=== PATIENT | female | born 1970 | race Caucasian/White ===

== ENCOUNTER 2024-12-17 07:25 | Outpatient (RCR) | payer OTHER, SELFPAY | END 2024-12-17 23:59 | disposition home or self-care (01) | LOC: RPT 07:25 | PROVIDERS: ATTENDING PHYSICIAN Physician Assistant Surgical; FAMILY PHYSICIAN Family Medicine | DX: S82.831D Other fracture of upper and lower end of right fibula, subsequent encounter for closed fracture with routine healing (principal); Z73.6 Limitation of activities due to disability; R26.2 Difficulty in walking, not elsewhere classified; M62.81 Muscle weakness (generalized); R26.89 Other abnormalities of gait and mobility; W10.1XXD Fall (on)(from) sidewalk curb, subsequent encounter | CPT/HCPCS: 97110; 97161; 97530 ==

== ENCOUNTER 2025-03-30 10:50 | Emergency (ER) | payer OTHER, SELFPAY ==
[2025-03-30 10:52] VITALS: BP 198/121
--- NOTE | 2025-03-30 11:08 | ED.GENMED ---
History of Present Illness
General
Chief Complaint: Urinary Symptoms
Time Seen by Provider: 03/30/25 11:01
History of Present Illness
History of Present Illness:
55-year-old female with history of hypertension and anxiety presents to the emergency department for evaluation of urinary frequency for the past 2 days. She was given a prescription of Macrobid by a friend that she began taking last night, 2 doses
thus far. Started having left lower abdominal pain this morning thus went to urgent care and was reportedly told her urinalysis was bland. Denies dysuria or hematuria, no flank pain or fevers. She is profoundly anxious and tearful as well as
tremulous on exam
Past History
Social History
Tobacco: Smoker
Personal: Single
Employment: Employed
Review of Systems
Review of Systems
Allergies reviewed?: Yes
All Other Systems: ROS reviewed and negative except as documented in HPI and ROS
Phy Exam
Physical Exam
Physical Exam:
GEN: Anxious and tearful, tremulous
HEENT: Oral mucosa moist, no scleral icterus
Cardiac: Regular rate
Lung: No respiratory distress, no tachypnea
Abdomen: Soft, grossly nontender
MSK: No gross deformity or injuries
Skin: Good color, no pallor or jaundice, no rashes
Neuro: AO x3, moves all extremities freely
Psych: Profoundly anxious and tearful
Course
Orders/Labs/Results
Orders:
Orders
03/30/25 11:09
Urinalysis Reflex To Culture Urgent
Date Specimen was Collected: 03/30/25
Time Specimen was Collected: 11:06
Urine Microscopic Reflex Cult Urgent
Urine Culture Urgent
HANNAH Source: U
Specimen Description:
Date Specimen was Collected: 03/30/25
Time Specimen was Collected: 11:06
Abnormal Lab Results
03/30/25
11:09
Urine Ketones 2+ A
(Negative)
Ur Occult Blood Reflex 1+ A
(Negative)
Leukocyte Esterase Rfl 1+ A
(Negative)
Urine Bacteria (Reflex) Moderate A
(Negative)
Urine Albumin (Reflex) 2+ A
(Neg - Trace)
Vital Signs
Initial and Last Documented VS:
Initial Vital Signs
Temp Pulse Resp BP Pulse Ox
98.5 F 105 16 198/121 97
03/30/25 10:52 03/30/25 10:52 03/30/25 10:52 03/30/25 10:52 03/30/25 10:52
Last Documented Vital Signs
Temp Pulse Resp BP Pulse Ox
98.5 F 105 16 173/107 98
03/30/25 10:52 03/30/25 10:52 03/30/25 10:52 03/30/25 12:00 03/30/25 12:00
MDM/Problems Addressed
MDM/Problems Addressed:
Urinalysis does show bacteriuria however no leukocytosis, I suspect this may be on the basis of her current antibiotic therapy. She has no reproducible tenderness warranting abdominal imaging and otherwise appears quite well. She was noted to be
hypertensive and tachycardic however appears profoundly anxious in the emergency department. Will full code of nitrofurantoin for treatment of UTI and recommend PCP follow-up
*Pulse Oximetry
SaO2: 97
Oxygen Mode of Delivery: Room air
Patient hypoxic: no
*Critical Care Note
Total Time (30-74mins, 75-104mins- exclusive of procedures): Not Applicable
ED Attending Note
-
Portions of this chart may have been created with voice recognition software.� Occasional wrong word or��sound alike� substitutions may have occurred due to the inherent limitations of voice recognition software.
Discharge Plan
Departure
Patient Disposition: Home (Routine Discharge)
Date of Disposition: 03/30/25
Time of Disposition: 11:59
Patient with high blood pressure during this ER visit?: No
Discharge Problem:
Urinary tract infection
Instructions: Urinary Tract Infection, Adult (DC)
Prescriptions:
New
nitrofurantoin macrocrystal 100 mg capsule
100 mg PO BID 5 Days Qty: 10 0RF
No Action
Axert
1 tab PO PRN (Reason: headache)
ibuprofen [Advil] 200 MG tablet
3 tab PO PRN (Reason: headache)
multivitamin with folic acid [Tab-A-Rohith] 1 TABLET tablet
1 tab PO DAILY
Patient Comments:
one a day for women
Referrals:
Marcela Greenfield MD [Family Provider, Family Practice]
Activity Restrictions/Additional Instructions:
Continue your antibiotics until completion
You may take [id number] Azo for pain relief for maximum of 2 days
We will contact you if the urine culture warrants change in therapy
Interventions
Interventions:
*Risk Screen - Suicide Last Done: 03/30/25 10:55
*General Assessment Last Done: 03/30/25 11:14
*Neglect/Abuse Screening Last Done: 03/30/25 10:55
*ED- Fall Risk Assessment Last Done: 03/30/25 11:14
*ED COVID-19 Vaccine History Last Done: 03/30/25 11:14
*Nursing Disposition Last Done: 03/30/25 12:18
ED-Female Genitourinary Assessment Last Done: 03/30/25 11:14
Discharge Date and Time
Discharge Date/Time: 03/30/25 12:18
Print Language: ROMANIAN
[2025-03-30 11:10] VITALS: BP 182/145
[2025-03-30 11:19] LABS: Urine Character Clear (Clear)
[2025-03-30 11:38] LABS: Urine Red Blood Cell 0-2 /HPF (0-2)
[2025-03-30 12:00] VITALS: BP 173/107
== END 2025-03-30 12:18 | disposition home or self-care (01) ==
LOC: EMR 10:50
PROVIDERS: Physician Assistant; EMERGENCY PHYSICIAN Emergency Medicine; FAMILY PHYSICIAN Family Medicine
DX: N39.0 Urinary tract infection, site not specified (principal); I10 Essential (primary) hypertension; F41.9 Anxiety disorder, unspecified; F17.200 Nicotine dependence, unspecified, uncomplicated
CPT/HCPCS: 99282; 81003; 81015; 87086